=== PATIENT | female | born 1995 | race Caucasian/White ===

== ENCOUNTER 2021-01-10 11:57 | Outpatient (RCR) | payer OTHER, SELFPAY ==
--- NOTE | 2021-01-10 13:58 | PTOPEVAL ---
PHYSICAL THERAPY EVALUATION Thank you for referring Marleny Cantu to [facility].? Jeff was evaluated for right knee patellofemoral dysfunction/instability. The patient is scheduled to be seen for therapy? 1 x/week for up to 4 weeks. Please review, sign, date and return this plan of care [place]. I agree with and certify that the following plan of care is medically necessary. 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 Pt reports the knee popping out then in when she is pivoting with weight on her foot. The pateint works out heavily through crossfit 2x a day/6days a week. The patient stopped running due to knee issues and has had PT in the past with exercises that helped prevent dislocation. Since the recent dislocation, the patient has pain at posterior knee and behind the kneecap with standing or activity. The patient is wearing the knee brace which really helps, has pain when she doesn't wear it. 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 Family Pain Assessment Timing of Pain Assessment Timing of Pain Assessment Assessment Pain Scale Pain Scale Used Numeric (1 - 10) Self Report Pain Assessment Right Knee(s) Reported Pain Level 0 Pain Description Soreness,Throbbing,Tightness Pain Frequency Acute Other Pain Description 5 with exercises or activity w /o brace Pain Aggravating Factors Exercise/Activity,Stair Climbing,Walking,Weight Bearing/Standing Pain Behaviors Guarding,Limping Pain S
--- NOTE | 2021-01-27 16:11 | PCPTNOTE ---
Patient arrived to scheduled appointment and refused to be seen by any other therapist beside Shakira
--- NOTE | 2021-02-14 11:26 | PCPTNOTE ---
PHYSICAL THERAPY DISCHARGE Attending Provider: Paulie Yuen MD Patient:Marleny Cantu Date of :1995 Patient has not returned for any further treatments since 01/10/2021, therefore she will be discharged at this time. Patient?s initial visit was on 01/10/2021 12:30 and she had a total of 1 visit. The goals have been partially met. Thank you for referring this patient to [facility]. Please review, sign, date and return this discharge summary [place]. I have been updated about the patient's current status and I agree with discharge from the above service at this time. Referring Physician Date
== END 2021-02-14 17:40 | disposition home or self-care (01) ==
LOC: ANHPT 11:57
PROVIDERS: PCP Family Medicine; Visit Provider Orthopaedic Surgery
DX: M25.561 Pain in right knee (principal)
CPT/HCPCS: 97110; 97162